=== PATIENT | male | born 1955 | race Caucasian/White ===

== ENCOUNTER 2016-08-07 08:34 | Emergency (ER) | payer BC ==
[2016-08-07 08:48] VITALS: BP 149/94
--- NOTE | 2016-08-07 08:58 | UC ---
Respiratory Complaint HPI - HPI Summary HPI Summary: cough x 3 weeks, + nasal congestion, fever, chills + sob last night - History of Current Complaint Chief Complaint: UCGeneralIllness Stated Complaint: RESPIRATORY Time Seen by Provider: 08/07/16 08:51 Hx Obtained From: Patient Onset/Duration: Gradual Onset, Lasting Weeks - 3, Still Present Timing: Constant Severity Initially: Moderate Severity Currently: Moderate Character: Cough: Nonproductive Aggravating Factors: Exertion, Deep Breaths Alleviating Factors: Nothing Associated Signs And Symptoms: Positive: Dyspnea, Fever, Chills, URI, Nasal Congestion. Negative: Pleuritic Chest Pain, Wheezing, Hemoptysis, Dizziness, Calf Pain, Calf Swelling, Sinus Discomfort - Allergies/Home Medications Allergies/Adverse Reactions: Allergies Allergy/AdvReac Type Severity Reaction Status Date / Time Hydromorphone [From Dilaudid] Allergy Hives/Diff. Verified 04/16/16 10:29 Breathing/I tching Morphine and Related Allergy HIVES/RASH/ Verified 04/16/16 10:29 VOMITING Home Medications: Home Medications Aspirin [Aspirin Adult Low Strengt] 81 mg PO BID 08/07/16 [History Confirmed 10/19] PMH/Surg Hx/FS Hx/Imm Hx Endocrine History Of: Denies: Diabetes Cardiovascular History Of: Denies: Hypertension, Pacemaker/ICD, Congestive Heart Failure Respiratory History Of: Reports: Asthma - inhaler, seasonal GI/ History Of: Denies: Renal Disease Neurological History Of: Denies: CVA - Surgical History Surgical History: Yes Surgery Procedure, Year, and Place: Rt SHOULDER-2011 (RTC); Lt SHOULDER RTC - 2010; CSP FUSION 2000; LUMBAR FUSION 1994; Rt KNEE ARTHROSCOPIC 2008; Lt THUMB FX 2008; Rt WRIST- FX ( A COUPLE SURG ) ; APPENDECTOMY 2011; EYE FOR LENS. REPLACED DUE TO INJURY ( HAD LENS CHANGED A COUPLE TIME-LAST ONE 2004); HERNIA NEW CERVICAL, FUSION FEBRUARY 2014 Right knee partial replacement. . PT HAVEING PAIN RT SIDE OF NACK - Family History Known Family History: Positive: Cardiac Disease, Hypertension - Social History Alcohol Use: Occasionally Substance Use Type: None Smoking Status (MU): Never Smoked Tobacco Review of Systems Constitutional: Fever, Chills, Fatigue Skin: Negative Eyes: Negative ENT: Nasal Discharge Respiratory: Shortness Of Breath, Cough Cardiovascular: Negative All Other Systems Reviewed And Are Negative: Yes Physical Exam Triage Information Reviewed: Yes Appearance: Well-Appearing, No Pain Distress, Well-Nourished Vital Signs: Initial Vital Signs Temp 98.3 F 08/07/16 08:42 Pulse 83 08/07/16 08:42 Resp 16 08/07/16 08:42 BP 149/94 08/07/16 08:42 Pulse Ox 100 08/07/16 08:42 Vital Signs Reviewed: Yes Eye Exam: Normal Eyes: Positive: Conjunctiva Clear ENT: Positive: Normal ENT inspection, Hearing grossly normal, Pharyngeal erythema, Nasal congestion, Nasal drainage, TMs normal Neck: Positive: Supple, Nontender, No Lymphadenopathy Respiratory: Positive: Chest non-tender, Lungs clear, Normal breath sounds Cardiovascular: Positive: RRR, No Murmur, Pulses Normal UC Diagnostic Evaluation - Laboratory O2 Sat by Pulse Oximetry: 100 Respiratory Course/Dx - Differential Dx/Diagnosis Provider Diagnoses: bronchitis Discharge - Discharge Plan Condition: Stable Disposition: HOME Prescriptions: Azithromycin TAB* [Zithromax TAB (Z-PARIS)*] 0 mg PO .Z-PARIS INSTRUCTIONS #6 tab Benzonatate CAP* [Tessalon CAP*] 100 mg PO TID PRN #21 cap PRN Reason: Cough Patient Education Materials: Acute Bronchitis (ED) Referrals: Bib Garay MD [Primary Care Provider] - 7 Days
== END 2016-08-07 09:14 | disposition home or self-care (01) ==
LOC: UCCORT 08:34
DX: J40 Bronchitis, not specified as acute or chronic (principal); R50.9 Fever, unspecified; J45.909 Unspecified asthma, uncomplicated; Z98.1 Arthrodesis status; Z88.5 Allergy status to narcotic agent
CPT/HCPCS: 99212; G0463

== ENCOUNTER 2016-08-24 13:42 | Emergency (ER) | payer BC ==
[2016-08-24 14:36] VITALS: BP 160/87
--- NOTE | 2016-08-24 15:05 | UC ---
Respiratory Complaint HPI - HPI Summary HPI Summary: 61 yo male with 1-2 month hx of cough/nasal congestion/sinus pain Now ears are plugged and popping He has a hx of asthma and has had to use his inhaler no CP or SOB - History of Current Complaint Chief Complaint: UCRespiratory Stated Complaint: COUGH,SINUS COMPLAINT Time Seen by Provider: 08/24/16 14:47 Hx Obtained From: Patient Onset/Duration: Gradual Onset, Lasting Weeks Timing: Constant Severity Initially: Mild Severity Currently: Mild Pain Intensity: 2 Pain Scale Used: 0-10 Numeric Character: Cough: Nonproductive Aggravating Factors: Nothing Alleviating Factors: Bronchodilator - used it x 1 today Associated Signs And Symptoms: Positive: Nasal Congestion, Sinus Discomfort - Allergies/Home Medications Allergies/Adverse Reactions: Allergies Allergy/AdvReac Type Severity Reaction Status Date / Time Hydromorphone [From Dilaudid] Allergy Hives/Diff. Verified 08/24/16 14:29 Breathing/I tching Morphine and Related Allergy HIVES/RASH/ Verified 08/24/16 14:29 VOMITING Home Medications: Home Medications Albuterol HFA INHALER* [Ventolin HFA Inhaler*] 2 puff INH Q4H PRN 08/24/16 [ History Confirmed 08/24/16] PMH/Surg Hx/FS Hx/Imm Hx Previously Healthy: Yes Endocrine History Of: Denies: Diabetes Cardiovascular History Of: Denies: Hypertension, Pacemaker/ICD, Congestive Heart Failure Respiratory History Of: Reports: Asthma - inhaler, seasonal GI/ History Of: Denies: Renal Disease Neurological History Of: Denies: CVA - Surgical History Surgical History: Yes Surgery Procedure, Year, and Place: Rt SHOULDER-2011 (RTC); Lt SHOULDER RTC - 2010; CSP FUSION 2000; LUMBAR FUSION 1994; Rt KNEE ARTHROSCOPIC 2008; Lt THUMB FX 2008; Rt WRIST- FX ( A COUPLE SURG ) ; APPENDECTOMY 2011; EYE FOR LENS. REPLACED DUE TO INJURY ( HAD LENS CHANGED A COUPLE TIME-LAST ONE 2004); HERNIA NEW CERVICAL, FUSION FEBRUARY 2014 Right knee partial replacement. . PT HAVEING PAIN RT SIDE OF NACK - Family History Known Family History: Positive: Cardiac Disease, Hypertension - Social History Alcohol Use: Occasionally Substance Use Type: None Smoking Status (MU): Never Smoked Tobacco Review of Systems Constitutional: Negative Skin: Negative Eyes: Negative ENT: Ear Ache - decreased hearing/fullness, Nasal Discharge Respiratory: Cough Cardiovascular: Negative Gastrointestinal: Negative Genitourinary: Negative Motor: Negative Neurovascular: Negative Musculoskeletal: Negative Neurological: Negative Psychological: Negative All Other Systems Reviewed And Are Negative: Yes Physical Exam Triage Information Reviewed: Yes Appearance: Well-Appearing, No Pain Distress, Well-Nourished Vital Signs: Initial Vital Signs Temp 98.1 F 08/24/16 14:32 Pulse 84 08/24/16 14:32 Resp 16 08/24/16 14:32 BP 160/87 08/24/16 14:32 Pulse Ox 99 08/24/16 14:32 Vital Signs Reviewed: Yes Eyes: Positive: Conjunctiva Clear ENT: Positive: Hearing grossly normal, Pharyngeal erythema, Nasal congestion, Nasal drainage, Other: - bilat max sinus tenderness. Negative: TMs normal - both are retracted, Trismus, Muffled/hoarse voice Neck: Positive: Supple, Nontender, No Lymphadenopathy Respiratory: Positive: Lungs clear, Normal breath sounds, No respiratory distress Cardiovascular: Positive: RRR, No Murmur Abdomen Description: Positive: CVA Tenderness (R) Musculoskeletal: Positive: ROM Intact, No Edema Neurological: Positive: Alert Psychological Exam: Normal Skin Exam: Normal UC Diagnostic Evaluation - Laboratory O2 Sat by Pulse Oximetry: 99 - normal/not hypoxic Respiratory Course/Dx - Differential Dx/Diagnosis Provider Diagnoses: acute sinusitis. bilateral serous otitis media Discharge - Discharge Plan Condition: Stable Disposition: HOME Prescriptions: DOXYcycline CAP(*) [DOXYcycline 100MG CAP(*)] 100 mg PO BID #20 cap Fluticasone NASAL SPRAY 50MCG* [Flonase NASAL SPRAY 50MCG*] 2 spray BOTH NARES DAILY #1 btl Prednisone [Deltasone] 20 - 40 mg PO DAILY #15 tab Patient Education Materials: Sinusitis (ED), Serous Otitis Media (ED) [place] [facility] [place] [place] [place]] - If Needed Additional Instructions: recheck in 2 weeks if hearing not back to normal
== END 2016-08-24 15:13 | disposition home or self-care (01) ==
LOC: UCCORT 13:42
DX: J01.90 Acute sinusitis, unspecified (principal); H65.93 Unspecified nonsuppurative otitis media, bilateral; J45.909 Unspecified asthma, uncomplicated; Z98.1 Arthrodesis status; Z88.5 Allergy status to narcotic agent
CPT/HCPCS: 99212; G0463

== ENCOUNTER 2017-09-20 09:49 | Emergency (ER) | payer BC ==
[2017-09-20] MEDS ORDERED: fentaNYL* 50 MCG/ML 2 ML VIAL (100 MCG VIAL) IV ONE (11:42)
[2017-09-20] MEDS ORDERED: NS 0.9% 1000 ML* 1,000 ML IV ONE (11:42)
[2017-09-20] MEDS ORDERED: Ondansetron INJ* 2 MG/ML VIAL IV ONE (11:42)
[2017-09-20 12:06] LABS: ABS Basophils 0 10^3/ul (0-0.2); ABS Eosinophils 0.1 10^3/ul (0-0.6); ABS Monocytes 0.5 10^3/ul (0-0.8); ABS Neutrophils 3.8 10^3/ul (1.5-7.7); ABS Nucleated RBC 0 10^3/ul; Eosinophil % 2.3 % (0-6); Hematocrit 41 % (42-52); Hemoglobin 14.7 g/dl (14.0-18.0); Mean Corpuscular HGB Conc 36 g/dl (31-36); Mean Corpuscular Hemoglobin 32 pg (27-31); Mean Corpuscular Volume 89 fL (80-94); Mean Platelet Volume 8 um3 (7.4-10.4); Nucleated Red Blood Cells % 0; Platelet Count 188 10^3/ul (150-450); Red Blood Count 4.65 10^6/ul (4.0-5.4); Red Cell Distribution Width 14 % (10.5-15); White Blood Count 6.4 10^3/ul (3.5-10.8)
[2017-09-20 12:17] LABS: EGFR Non-African American 66.9 (>60)
--- NOTE | 2017-09-20 12:40 | RAD ---
CLINICAL HISTORY: Left lower quadrant pain COMPARISON: November 27, 2014 TECHNIQUE: Multiple contiguous axial CT scans were obtained of the abdomen and pelvis, without intravenous contrast enhancement. Coronal and sagittal multiplanar reformations are submitted for review. Oral contrast was not administered. FINDINGS: The study is limited by the lack of intravenous contrast. This limits evaluation of the solid organs and vasculature. LUNG BASES: The lung bases are clear. LIVER: The liver is diffusely low in attenuation compared to the spleen. There are no focal hepatic parenchymal masses. The liver measures 19 cm in long axis. BILE DUCTS: There is no intrahepatic or extrahepatic biliary dilatation. GALLBLADDER: The gallbladder is normal, without pericholecystic inflammatory change. PANCREAS: The pancreas is normal, without mass or ductal dilatation. SPLEEN: Normal in size and appearance. UPPER GI TRACT: Evaluation of the gastrointestinal tract is limited by incomplete gastric distention. The upper GI tract is unremarkable. SMALL BOWEL AND MESENTERY: The small bowel is normal in contour, course, and caliber. There is no obstruction or dilatation. COLON: The colon is normal in contour, course, caliber. There is no pericolonic inflammatory change. ADRENALS: Normal bilaterally. KIDNEYS: The kidneys are normal in shape, size, contour, and axis. There is no hydronephrosis or nephrolithiasis. BLADDER: There is intraluminal extension of the prostate gland into the bladder. PELVIC ORGANS: The prostate is diffusely enlarged. There is interval extension of the prostate gland into the bladder. The seminal vesicles are symmetric. AORTA: There is calcific atherosclerotic disease of the abdominal aorta and its branches, without aneurysmal dilatation IVC: Unremarkable LYMPH NODES: There is no lymphadenopathy by size criteria. ABDOMINAL WALL: There are bilateral fat-containing inguinal hernias. BONES AND SOFT TISSUES: Degenerative changes are noted of the spine. The patient is status post spinal fusion OTHER: None IMPRESSION: 1. HEPATOMEGALY WITH FATTY INFILTRATION OF LIVER. 2. NO HYDRONEPHROSIS OR NEPHROLITHIASIS. 3. ENLARGED PROSTATE WITH INTRALUMINAL EXTENSION INTO THE BLADDER. 4. BILATERAL FAT-CONTAINING INGUINAL HERNIAS. 5. ATHEROSCLEROSIS.
[2017-09-20 13:17] LABS: Urine Appearance Clear; Urine Blood Negative (Negative); Urine Color Yellow; Urine Ketones Negative (Negative); Urine Protein Negative (Negative); Urine Specific Gravity 1.015 (1.010-1.030); Urine Urobilinogen Negative (Negative)
[2017-09-20 14:03] VITALS: BP 141/94
--- NOTE | 2017-09-20 18:16 | ED ---
Ari Razo Thomas, scribed for Shmuel Hill MD on 09/20/17 at 1148 . Abdominal Pain/Male - HPI Summary HPI Summary: The patient is a 62 year old male complaining of LLQ abdominal pain that began this morning when he woke up, however he has been dealing with a similar pain over the last few weeks. The pain is rated 8/10. The pain is described as dull. The pain is aggravated by positional change. The patient additionally complains of nausea and diarrhea. The patient denies vomiting and constipation. Past surgical history includes appendectomy. - History of Current Complaint Chief Complaint: EDAbdPain Stated Complaint: ABD PAIN Time Seen by Provider: 09/20/17 11:35 Hx Obtained From: Patient Onset/Duration: Lasting Weeks, Still Present, Worse Since - this AM Timing: Constant Severity Currently: Severe Pain Intensity: 8 Pain Scale Used: 0-10 Numeric Location: Discrete At: LLQ Radiates: No Aggravating Factor(s): Other: - Positional change Alleviating Factor(s): Nothing Associated Signs And Symptoms: Positive: Other - nauseas, diarrhea; NEGATIVE: vomiting, constipation - Allergies/Home Medications Allergies/Adverse Reactions: Allergies Allergy/AdvReac Type Severity Reaction Status Date / Time hydromorphone Allergy Intermediate hives/diff. Verified 09/20/17 14:20 breathing/itching morphine Allergy Intermediate hives/rash/ Verified 09/20/17 14:20 vomitting PMH/Surg Hx/FS Hx/Imm Hx Endocrine/Hematology History: Denies: Hx Diabetes, Hx Systemic Lupus Erythematosus Cardiovascular History: Reports: Other Cardiovascular Problems/Disorders - prolapsed valve Denies: Hx Congestive Heart Failure, Hx Hypertension, Hx Pacemaker/ICD Respiratory History: Reports: Hx Asthma - inhaler, seasonal GI History: Denies: Other GI Disorders History: Denies: Hx Dialysis, Hx Renal Disease, Other Problems/Disorders Musculoskeletal History: Reports: Other Musculoskeletal History - See surgical history Denies: Hx Rheumatoid Arthritis Sensory History: Denies: Hx Hearing Aid Neurological History: Denies: Other Neuro Impairments/Disorders Psychiatric History: Denies: Hx Panic Disorder - Cancer History Hx Chemotherapy: No - Surgical History Surgery Procedure, Year, and Place: Rt SHOULDER-2011 (RTC); Lt SHOULDER RTC - 2010; CSP FUSION 2000; LUMBAR FUSION 1994; Rt KNEE ARTHROSCOPIC 2008; Lt THUMB FX 2008; Rt WRIST- FX ( A COUPLE SURG ) ; APPENDECTOMY 2011; EYE FOR LENS. REPLACED DUE TO INJURY ( HAD LENS CHANGED A COUPLE TIME-LAST ONE 2004); HERNIA NEW CERVICAL, FUSION FEBRUARY 2014 Right knee partial replacement. . PT HAVEING PAIN RT SIDE OF NACK Infectious Disease History: No Infectious Disease History: Denies: Traveled Outside the [place] in Last 30 Days - Family History Known Family History: Positive: Cardiac Disease, Hypertension - Social History Alcohol Use: Occasionally Substance Use Type: Reports: None Smoking Status (MU): Never Smoked Tobacco Review of Systems Negative: Fever Positive: Abdominal Pain, Diarrhea, Nausea. Negative: Vomiting, Other - constipation All Other Systems Reviewed And Are Negative: Yes Physical Exam - Summary Physical Exam Summary: VITAL SIGNS: Reviewed. GENERAL: Patient is a well-developed and nourished male who is lying comfortable in the stretcher in no acute distress. Patient is not in any acute respiratory distress. HEAD AND FACE: Normocephalic and atraumatic. EYES: PERRLA, EOMI x 2, No injected conjunctiva. EARS: Hearing grossly intact. Ear canals and tympanic membranes are WNL. MOUTH: Oropharynx within normal limits. NECK: Supple, trachea is midline, no adenopathy, no JVD. CHEST: Symmetric, no tenderness at palpation LUNGS: Clear to auscultation bilaterally. No wheezing or crackles. CVS: RRR, S1 and S2 present, no murmurs or gallops appreciated. ABDOMEN: Soft. LLQ tenderness. No signs of distention. Positive bowel sounds. No rebound no guarding, and no masses palpated. No abdominal bruit or pulsations. There are no evident inguinal hernias. EXTREMITIES: FROM in all major joints, no edema, no cyanosis or clubbing. NEURO: Alert and oriented x 3. No acute neurological deficits. Speech is normal. SKIN: Dry and warm Triage Information Reviewed: Yes Vital Signs On Initial Exam: Initial Vitals Temp Pulse Resp BP Pulse Ox 97.0 F 69 20 181/101 97 09/20/17 09:50 09/20/17 09:50 09/20/17 09:50 09/20/17 09:50 09/20/17 09:50 Vital Signs Reviewed: Yes Diagnostics - Vital Signs Vital Signs Temp Pulse Resp BP Pulse Ox 09/20/17 09:50 97.0 F 69 20 181/101 97 - Laboratory Result Diagrams: 09/20/17 11:54 09/20/17 11:54 Lab Statement: Any lab studies that have been ordered have been reviewed, and results considered in the medical decision making process. - CT CT Abd/Pel CT Interpretation: Positive (See Comments) - 1. HEPATOMEGALY WITH FATTY INFILTRATION OF LIVER. 2. NO HYDRONEPHROSIS OR NEPHROLITHIASIS. 3. ENLARGED PROSTATE WITH INTRALUMINAL EXTENSION INTO THE BLADDER. 4. BILATERAL FAT- CONTAINING INGUINAL HERNIAS. 5. ATHER[address]OSIS. Dr. Hill has reviewed this report. CT Interpretation Completed By: Radiologist Abdominal Pain Fem Course/Dx - Course Assessment/Plan: The patient is a 62 year old male complaining of LLQ abdominal pain that began this morning when he woke up, however he has been dealing with a similar pain over the last few weeks. The pain is rated 8/10. The pain is described as dull. The pain is aggravated by positional change. The patient additionally complains of nausea and diarrhea. The patient denies vomiting and constipation. Past surgical history includes appendectomy. Test results are without significant abnormalities. Urinalysis is negative for UTI. CT Abd/Pel shows 1. HEPATOMEGALY WITH FATTY INFILTRATION OF LIVER. 2. NO HYDRONEPHROSIS OR NEPHROLITHIASIS. 3. ENLARGED PROSTATE WITH INTRALUMINAL EXTENSION INTO THE BLADDER. 4. BILATERAL FAT-CONTAINING INGUINAL HERNIAS. 5. ATHEROSCLEROSIS. In the ED course, the patient was given morphine and Zofran for the pain. The patients symptoms resolved. The patient is asymptomatic and he feels better. In the CT report, there are hernia revealed; however, I examined the patient and he does not have any incarcerated hernias. Therefore, the patient is discharged home to follow up with primary care. The patient is hemodynamically stable and alert and oriented x 3. - Diagnoses Provider Diagnoses: Left flank pain, Abdominal pain Discharge - Discharge Plan Condition: Stable Disposition: HOME Prescriptions: Naproxen TAB* [Naprosyn 250 mg TAB*] 250 mg PO Q8H PRN #30 tab PRN Reason: Pain Patient Education Materials: Abdominal Pain (ED), Flank Pain (ED) Referrals: [facility] [place] [facility]FERR[facility] [Outside] - 3 Days Additional Instructions: Follow up with your primary care physician in three days. If you do not have a primary care provider, you can use the [facility] [place] physician referral service to find one and make an appointment. Return to the emergency department for any new or worsening symptoms. The documentation as recorded by the Ari hay Thomas accurately reflects the service I personally performed and the decisions made by me, Shmuel Hill MD.
== END 2017-09-20 14:02 | disposition home or self-care (01) ==
LOC: ED 09:49
DX: R10.32 Left lower quadrant pain (principal); K76.0 Fatty (change of) liver, not elsewhere classified; N40.0 Benign prostatic hyperplasia without lower urinary tract symptoms; K40.20 Bilateral inguinal hernia, without obstruction or gangrene, not specified as recurrent; I70.0 Atherosclerosis of aorta; Z88.5 Allergy status to narcotic agent
CPT/HCPCS: 36415; 74176; 80053; 81003; 83605; 83690; 85025; 86140; 96361; 96374; 96375; 99282; J2405; J3010

== ENCOUNTER 2019-07-20 14:49 | Emergency (ER) | payer BC ==
[2019-07-20 15:30] VITALS: BP 173/92
--- NOTE | 2019-07-20 15:45 | UC ---
Respiratory Complaint HPI - HPI Summary HPI Summary: 64-year-old male nonsmoker who has had a productive cough over the past week. He states today it is greenish and also has some blood in it. He denies any fever or chills. 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 Aggravating Factors: Nothing Alleviating Factors: Nothing Associated Signs And Symptoms: Positive: Hemoptysis, URI, Nasal Congestion - Allergies/Home Medications Allergies/Adverse Reactions: Allergies Allergy/AdvReac Type Severity Reaction Status Date / Time hydromorphone Allergy Intermediate hives/diff. Verified 07/20/19 15:27 breathing/itching morphine Allergy Intermediate hives/rash/ Verified 07/20/19 15:27 vomitting Home Medications: Home Medications Ibuprofen TAB* [Advil TAB*] 800 mg PO Q8H PRN 07/20/19 [History Confirmed ] Lisinopril TAB* [Prinivil TAB*] 10 mg PO DAILY 07/20/19 [History Confirmed 07/20] Lurasidone(*) [Latuda] 20 mg PO DAILY 07/20/19 [History Confirmed 07/20/19] clonazePAM TAB(*) [KlonoPIN TAB(*)] 1 mg PO BEDTIME 07/20/19 [History Confirmed 07/20/19] PMH/Surg Hx/FS Hx/Imm Hx Previously Healthy: Yes Respiratory History: Asthma - Patient has exercise-induced asthma. - Surgical History Surgical History: Yes Surgery Procedure, Year, and Place: Rt SHOULDER-2011 (RTC); Lt SHOULDER RTC - 2010; CSP FUSION 2000; LUMBAR FUSION 1994; Rt KNEE ARTHROSCOPIC 2008; Lt THUMB FX 2008; Rt WRIST- FX ( A COUPLE SURG ) ; APPENDECTOMY 2011; EYE FOR LENS. REPLACED DUE TO INJURY ( HAD LENS CHANGED A COUPLE TIME-LAST ONE 2004); HERNIA NEW CERVICAL, FUSION FEBRUARY 2014 Right knee partial replacement. . PT HAVEING PAIN RT SIDE OF NACK - Family History Known Family History: Positive: Cardiac Disease, Hypertension - Social History Alcohol Use: Occasionally Substance Use Type: None Smoking Status (MU): Never Smoked Tobacco Review of Systems All Other Systems Reviewed And Are Negative: Yes Respiratory: Positive: Cough - Productive cough of greenish sputum today and has had some blood in it today. Denies any pain on deep inspiration. Is Patient Immunocompromised?: No Physical Exam Triage Information Reviewed: Yes Appearance: Well-Appearing, No Pain Distress, Well-Nourished Vital Signs: Initial Vital Signs Temp 98.2 F 07/20/19 15:22 Pulse 66 07/20/19 15:22 Resp 18 07/20/19 15:22 BP 173/92 07/20/19 15:22 Pulse Ox 98 07/20/19 15:22 Vital Signs Reviewed: Yes Eyes: Positive: Conjunctiva Clear ENT: Positive: Hearing grossly normal, Pharynx normal, TMs normal, Uvula midline Neck: Positive: Supple, Nontender, No Lymphadenopathy Respiratory: Positive: No respiratory distress, No accessory muscle use, Rhonchi - Very mild rhonchi in the left upper lobe posteriorly, no distress. Cardiovascular: Positive: RRR, No Murmur, Pulses Normal, Brisk Capillary Refill Musculoskeletal Exam: Normal Neurological Exam: Normal Psychological Exam: Normal Skin Exam: Normal Respiratory Course/Dx - Course Course Of Treatment: Chest x-ray:FINDINGS: The lungs are clear. There is no pleural effusion. The cardiomediastinal silhouette is within normal limits. The upper abdominal contents are normal. Osseous structures are unremarkable. IMPRESSION: No acute cardiopulmonary process by radiograph (CT provides better evaluation of the airways). Even though the chest x-ray was normal I am going to treat the patient because of his greenish brown sputum that he has been coughing up. I'm also giving him benzonatate to take for his cough and a definite follow-up with his primary care provider on Saturday if no improvement. The patient is agreeable to this plan of action. - Differential Dx/Diagnosis Provider Diagnosis: Bronchitis Discharge ED - Sign-Out/Discharge Documenting (check all that apply): Patient Departure All imaging exams completed and their final reports reviewed: Yes - Discharge Plan Condition: Good Disposition: HOME Prescriptions: Amoxicillin/Clavulanate TAB* [Augmentin TAB 875*] 875 mg PO BID 10 Days #20 tab Benzonatate CAP* [Tessalon 100 MG CAP*] 100 mg PO TID PRN #42 cap PRN Reason: Cough Patient Education Materials: Acute Bronchitis (ED) Referrals: [facility] [Outside] No Primary Care Phys,NOPCP [Primary Care Provider] - Additional Instructions: Increase fluids, may take one or 2 caplets of the benzonatate 3 times a day for cough. Take the Augmentin with food. Definite follow-up with your primary care provider in 3 or 4 days if no improvement and go to the emergency room if you have any difficulty breathing, chest pain or worsening symptoms. - Billing Disposition and Condition Condition: GOOD Disposition: Home
== END 2019-07-20 16:33 | disposition home or self-care (01) ==
LOC: UCCORT 14:49
DX: J45.998 Other asthma (principal); Z88.5 Allergy status to narcotic agent
CPT/HCPCS: 71046; 99212; G0463

== ENCOUNTER 2019-09-06 08:51 | Emergency (ER) | payer BC ==
--- OUTSIDE RECORDS SUMMARY | 2019-09-06 09:00 | XMS REPORT ---
:1955 Author Organization [facility] Care Team Providers Name Role Phone Marva Lisa Primary Care Physician Unavailable Allergies, Adverse Reactions, Alerts Allergy Code CodeSystem Reaction Severity Criticality Status Start Substance Date Moderate Medications Medication Medication Medication Start Stop Route Dose Status Fill Code CodeSystem Date Date Instructions clonazepam 19740911 RxNorm 2018-12- oral 0.5 mg completed Take 1 tablet -06-14 1 twice a day tablet as needed for twice a 30 day(s) day clonazepam 19740911 RxNorm 2018-11- oral 0.5 mg completed Take 1 tablet -12-06 1 twice a day tablet as needed for twice a 30 day(s) day lamotrigine 19830912 RxNorm 2018-08- oral 150 mg completed for - tablet day(s) meloxicam 448765 RxNorm 2018-10 oral 15 mg active for - tablet day(s) lamotrigine 19830912 RxNorm 2018-11- oral 150 mg completed Take 1 tablet 02-22 1 once a day tablet for 30 day(s) once a day clonazepam 19740911 RxNorm 2018-11- oral 0.5 mg completed for 12-09 tablet day(s) clonazepam 19740911 RxNorm 2019-06 oral 0.5 mg active Take 1 tablet - 1 twice a day tablet as needed for twice a 30 day(s) day clonazepam 19740911 RxNorm 2018-10- oral 0.5 mg completed for 11-06 tablet day(s) tizanidine 456397 RxNorm 2018-10 oral 4 mg active for - tablet day(s) Latuda 1262723 RxNorm 2019-07 oral 40 mg active for - tablet day(s) Problems Problem Name Code CodeSystem Alternate Alternate Start End Status Narrative Code CodeSystem Date Date Bipolar II 72407798 SNOMED-CT 2019- Active disorder 3-22 Unspecified [id number] SNOMED-CT 2019- Active anxiety 3-27 disorder Relevant diagnostic tests/laboratory data Narrative No Information Procedures Procedure Code CodeSystem Target Date of Status Service Device Device Device Name Site Procedure Delivery Code Name UID Location Psychotherap [id number] SNOMED-CT () 2019-07-14 complete Mental y, 45 04 d Health- minutes with [place] patient [address], [id number] [phone] Psychotherap [id number] SNOMED-CT () 2019-07-21 complete Mental y, 45 04 d Health- minutes with [place] patient [address], [phone] Office [place] [id number] SNOMED-CT () 2019-07-09 complete Mental other 7 d Health- outpatient [place] visit for [address], [facility], of an [place], established [phone] patient, [phone] which requires at least 2 of these 3 munoz components: An expanded problem focused history; An expanded problem focused examination; Medical decision making of low Encounters/Encounter Diagnoses Encounter Name Encounter Diagnosis Diagnosis Diagnosis Date of Service Code Code Name CodeSystem Diagnosis Delivery Location Psychotherapy - 23074 [id number] Bipolar II SNOMED-CT 2019-07-21 Behavioral Individual 30 disorder [facility] [address] [place] [address], [phone] Vital Signs No Information Social History Element Description Description Start End Code CodeSystem AdditionalInfo Date Date SexAssignedAtBirth Male 7-0 M AdministrativeGender 8-30 Hospital Discharge Instructions Reason For Referral Medical Equipment FDA Assessments
--- OUTSIDE RECORDS SUMMARY | 2019-09-06 09:00 | XMS REPORT ---
:1955 Author Organization [facility] Care Team Providers Name Role Phone Marva Lisa Primary Care Physician Unavailable Allergies, Adverse Reactions, Alerts Allergy Code CodeSystem Reaction Severity Criticality Status Start Substance Date Moderate Medications Medication Medication Medication Start Stop Route Dose Status Fill Code CodeSystem Date Date Instructions lamotrigine 19830912 RxNorm 2018-08- oral 150 mg completed for 11-24 tablet day(s) lamotrigine 19830912 RxNorm 2018-11- oral 150 mg completed Take 1 tablet 02-22 1 once a day tablet for 30 day(s) once a day clonazepam 19740911 RxNorm 2019-06 oral 0.5 mg active Take 1 tablet - 1 twice a day tablet as needed for twice a 30 day(s) day clonazepam 19740911 RxNorm 2018-10- oral 0.5 mg completed for - tablet day(s) clonazepam 19740911 RxNorm 2018-11- oral 0.5 mg completed for - tablet day(s) Latuda 2932701 RxNorm 2019-07 oral 40 mg active for tablet day(s) tizanidine 469590 RxNorm 2018-10 oral 4 mg active for tablet day(s) clonazepam 19740911 RxNorm 2018-11- oral 0.5 mg completed Take 1 tablet -12-06 1 twice a day tablet as needed for twice a 30 day(s) day clonazepam 19740911 RxNorm 2018-12- oral 0.5 mg completed Take 1 tablet - 1 twice a day tablet as needed for twice a 30 day(s) day meloxicam 185947 RxNorm 2018-10 oral 15 mg active for - tablet day(s) Problems Problem Name Code CodeSystem Alternate Alternate Start End Status Narrative Code CodeSystem Date Date Bipolar II 62886027 SNOMED-CT 2019- Active disorder 3-22 Unspecified 61016153 SNOMED-CT 2019- Active anxiety 3-27 disorder Relevant diagnostic tests/laboratory data Narrative No Information Procedures Procedure Code CodeSystem Target Date of Status Service Device Device Device Name Site Procedure Delivery Code Name UID Location Psychotherap [id number] SNOMED-CT () 2019-07-14 complete Mental y, 45 04 d Health- minutes with [place] patient [address], [phone] [phone] Office or [id number] SNOMED-CT () 2019-07-09 complete Mental other 7 d Health- outpatient [place] visit for [address], management [place], of an [place], established [id number] patient, [phone] which requires at least 2 of these 3 munoz components: An expanded problem focused history; An expanded problem focused examination; Medical decision making of low Encounters/Encounter Diagnoses Encounter Name Encounter Diagnosis Diagnosis Diagnosis Date of Service Code Code Name CodeSystem Diagnosis Delivery Location [facility] - [address] [id number] Bipolar II SNOMED-CT 2019-07-21 Behavioral Individual 30 disorder [facility] , , , Vital Signs No Information Social History Element Description Description Start End Code CodeSystem AdditionalInfo Date Date SexAssignedAtBirth Male 1955-0 M AdministrativeGender 8-30 Hospital Discharge Instructions Reason For Referral Medical Equipment FDA Assessments
--- OUTSIDE RECORDS SUMMARY | 2019-09-06 09:00 | XMS REPORT ---
:1955 Author Organization [facility] Care Team Providers Name Role Phone Marva Lisa Primary Care Physician Unavailable Allergies, Adverse Reactions, Alerts Allergy Code CodeSystem Reaction Severity Criticality Status Start Substance Date Moderate Medications Medication Medication Medication Start Stop Route Dose Status Fill Code CodeSystem Date Date Instructions clonazepam 19740911 RxNorm 2019-06 oral 0.5 mg active Take 1 tablet -13 1 twice a day tablet as needed for twice a 30 day(s) day tizanidine 881921 RxNorm 2018-10 oral 4 mg active for - tablet day(s) clonazepam 19740911 RxNorm 2018-11- oral 0.5 mg completed for - tablet day(s) clonazepam 19740911 RxNorm 2018-11- oral 0.5 mg completed Take 1 tablet -11 07- 1 twice a day tablet as needed for twice a 30 day(s) day lamotrigine 19830912 RxNorm 2018-08- oral 150 mg completed for - tablet day(s) Latuda 8002402 RxNorm 2019-07 oral 40 mg active for - tablet day(s) lamotrigine 19830912 RxNorm 2018-11- oral 150 mg completed Take 1 tablet -23 02- 1 once a day tablet for 30 day(s) once a day clonazepam 19740911 RxNorm 2018-12- oral 0.5 mg completed Take 1 tablet -02 12-10 1 twice a day tablet as needed for twice a 30 day(s) day clonazepam 19740911 RxNorm 2018-10- oral 0.5 mg completed for - tablet day(s) meloxicam 231369 RxNorm 2018-10 oral 15 mg active for - tablet day(s) Problems Problem Name Code CodeSystem Alternate Alternate Start End Status Narrative Code CodeSystem Date Date Bipolar II 05430209 SNOMED-CT Active disorder 3-22 Unspecified 02581032 SNOMED-CT Active anxiety 3-27 disorder Relevant diagnostic tests/laboratory data Narrative No Information Procedures Procedure Code CodeSystem Target Date of Status Service Device Device Device Name Site Procedure Delivery Code Name UID Location Psychotherap [id number] SNOMED-CT () 2019-07-14 complete Mental y, 47 04 d Health- minutes with [place] patient [address], [phone] Psychotherap [id number] SNOMED-CT () 2019-07-21 complete Mental y, 45 04 d Health- minutes with [place] patient [address], [phone] Psychotherap [id number] SNOMED-CT () 2019-08-04 complete Mental y, 45 04 d Health- minutes with [place] patient [address], [phone] Office or [id number] SNOMED-CT () 2019-07-09 complete Mental other 7 d Health- outpatient [place] visit for [address], management [place], of an [facility] established [phone] patient, [phone] which requires at least 2 of these 3 munoz components: An expanded problem focused history; An expanded problem focused examination; Medical decision making of low Encounters/Encounter Diagnoses Encounter Name Encounter Diagnosis Diagnosis Diagnosis Date of Service Code Code Name CodeSystem Diagnosis Delivery Location [facility] [address] [id number] Bipolar II SNOMED-CT 2019-08-12 Behavioral Established disorder Health patient [facility] , , Minutes , Vital Signs No Information Social History Element Description Description Start End Code CodeSystem AdditionalInfo Date Date SexAssignedAtBirth Male 7-0 M AdministrativeGender 8-30 Hospital Discharge Instructions Reason For Referral Medical Equipment FDA Assessments
[2019-09-06 09:08] VITALS: BP 150/58
--- NOTE | 2019-09-06 09:13 | UC ---
Hand/Wrist HPI - HPI Summary HPI Summary: 64 yo male fell off pain (about 3 feet) landing on out stretched right arm C/0 right wrist pain hx ORIF right wrist years ago no other injuries - History Of Current Complaint Chief Complaint: UCUpperExtremity Stated Complaint: RIGHT HAND/ WRIST INJURY S/P FALL Time Seen by Provider: 09/06/19 09:02 Hx Obtained From: Patient Onset/Duration: Sudden Onset, Gradual Onset Severity Initially: Moderate Severity Currently: Moderate Pain Intensity: 6 Pain Scale Used: 0-10 Numeric Character Of Pain: Aching Aggravating Factor(s): Movement Alleviating Factor(s): Rest Related History: Dominant Hand Right Hands: 1 - pain/swelling - Allergies/Home Medications Allergies/Adverse Reactions: Allergies Allergy/AdvReac Type Severity Reaction Status Date / Time hydromorphone Allergy Intermediate hives/diff. Verified 09/06/19 09:09 breathing/itching morphine Allergy Intermediate hives/rash/ Verified 09/06/19 09:09 vomitting PMH/Surg Hx/FS Hx/Imm Hx Previously Healthy: Yes Cardiovascular History: Hypertension Psychological History: Bipolar Disorder - Surgical History Surgical History: Yes Surgery Procedure, Year, and Place: Rt SHOULDER-2011 (RTC); Lt SHOULDER RTC - 2010; CSP FUSION 2000; LUMBAR FUSION 1994; Rt KNEE ARTHROSCOPIC 2008; Lt THUMB FX 2008; Rt WRIST- FX ( A COUPLE SURG ) ; APPENDECTOMY 2011; EYE FOR LENS. REPLACED DUE TO INJURY ( HAD LENS CHANGED A COUPLE TIME-LAST ONE 2004); HERNIA NEW CERVICAL, FUSION FEBRUARY 2014 Right knee partial replacement. . PT HAVEING PAIN RT SIDE OF NACK - Family History Known Family History: Positive: Cardiac Disease, Hypertension - Social History Alcohol Use: Occasionally Substance Use Type: None Smoking Status (MU): Never Smoked Tobacco Review of Systems All Other Systems Reviewed And Are Negative: Yes Constitutional: Positive: Negative Skin: Positive: Negative Eyes: Positive: Negative ENT: Positive: Negative Respiratory: Positive: Negative Cardiovascular: Positive: Negative Gastrointestinal: Positive: Negative Genitourinary: Positive: Negative Musculoskeletal: Positive: Arthralgia - right wrist Neurological: Positive: Negative Psychological: Positive: Negative Physical Exam Triage Information Reviewed: Yes Appearance: Well-Appearing, No Pain Distress, Well-Nourished Vital Signs: Initial Vital Signs Temp 97.7 F 09/06/19 09:01 Pulse 72 09/06/19 09:01 Resp 18 09/06/19 09:01 BP 150/58 09/06/19 09:01 Pulse Ox 98 09/06/19 09:01 Eyes: Positive: Conjunctiva Clear ENT: Positive: Hearing grossly normal. Negative: Nasal congestion, Nasal drainage, Trismus, Muffled voice, Hoarse voice Dental Exam: Normal Neck: Positive: Supple Respiratory: Positive: Lungs clear, Normal breath sounds, No respiratory distress, No accessory muscle use Cardiovascular: Positive: RRR, No Murmur Musculoskeletal: Positive: ROM Limited @ - right wrist, Edema @ - dorsum or right wrist, Other: - n/v intact Neurological: Positive: Alert Psychological Exam: Normal Skin Exam: Normal Diagnostics - Radiology No standard instances Radiology Interpretation Completed By: Radiologist Summary of Radiographic Findings: Status post ORIF with no displaced fracture. If pain persists, repeat imaging in 7-10 days is recommended Hand/Wrist Course/Dx - Differential Dx/Diagnosis Provider Diagnosis: Right wrist sprain Discharge ED - Sign-Out/Discharge Documenting (check all that apply): Patient Departure All imaging exams completed and their final reports reviewed: Yes - Discharge Plan Condition: Stable Disposition: HOME Patient Education Materials: Wrist Sprain (ED) Referrals: Vipul Morton MD [Medical Doctor] - As Soon As Possible (I suggest recheck this week) Additional Instructions: splint ice twice daily ibuprofen - Billing Disposition and Condition Condition: STABLE Disposition: Home
== END 2019-09-06 10:02 | disposition home or self-care (01) ==
LOC: UCCORT 08:51
DX: S63.501A Unspecified sprain of right wrist, initial encounter (principal); W17.89XA Other fall from one level to another, initial encounter; Y92.9 Unspecified place or not applicable; I10 Essential (primary) hypertension; F31.9 Bipolar disorder, unspecified; Z98.1 Arthrodesis status; Z98.890 Other specified postprocedural states; Z88.5 Allergy status to narcotic agent; Z88.6 Allergy status to analgesic agent
CPT/HCPCS: 99211; G0463